=== PATIENT | female | born 1955 | race Caucasian/White ===

== ENCOUNTER → 2017-02-07 | Outpatient (CLI) | payer BC ==
[~2017-02-07] VITALS: Ht 163.8 cm; Wt 69.9 kg
[~2017-02-07] MED LIST: CINNAMON500 MG PO; MOTRIN600 MG PO; ODOR FREE GARL1 EACH PO; TYLENOL REGULA325 MG PO; ULTRACET1 TABLET PO; VALIUM2 MG PO
== END | disposition home or self-care (01) ==
LOC: AMB 07:12
PROC: 0DBK8ZX Excision of Ascending Colon, Via Natural or Artificial Opening Endoscopic, Diagnostic (ICD-10-PCS; principal; 2017-02-07)
DX: Z12.11 Encounter for screening for malignant neoplasm of colon (principal); Z86.010 Personal history of colon polyps; Z80.0 Family history of malignant neoplasm of digestive organs; K63.5 Polyp of colon; K57.30 Diverticulosis of large intestine without perforation or abscess without bleeding; Z80.3 Family history of malignant neoplasm of breast; Z79.82 Long term (current) use of aspirin
CPT/HCPCS: 88305; J2250; J3010